=== PATIENT | male | born 1980 | race Caucasian/White ===

== ENCOUNTER 2018-10-24 14:00 | Emergency (ER) | payer MEDICAID ==
[~2018-10-24] VITALS: Wt 83.6 kg
[2018-10-24 14:43] VITALS: BP 123/80; PULSE 84; RESP 20
[2018-10-24] MEDS ORDERED: LIDOCAINE 1% (MDV) 20 ML INJ SC ONE (15:00)
[2018-10-24] MEDS ORDERED: BACITRACIN 0.9 GM OINT TOP ONE (15:00)
[2018-10-24] MEDS ORDERED: HYDR-4011 PO (15:15)
[2018-10-24] MEDS ORDERED: CEPH-443 PO (15:15)
--- NOTE | 2018-10-24 15:39 | ERD ---
ER Documentation Chief Complaint Chief Complaint INGROWN TOENAIL HPI 38-year-old male presents with complaint of ingrown toenail to the first left toe for the past 3 days. States that it is been painful. States it is also been inflamed. Denies any treatments. Denies any fevers, chills, numbness. ROS All systems reviewed and are negative except as per history of present illness. Medications Home Meds Active Scripts Cephalexin* (Keflex*) 500 Mg Capsule, 500 MG PO QID for 7 Days, CAP Prov:BART GOODMAN 10/24/18 Hydrocodone/Acetaminophen ([place] 5-325 Tablet) 1 Each Tablet, 1 TAB PO Q6H PRN for PAIN, #10 TAB Prov:BART GOODMAN 10/24/18 Allergies Allergies: Coded Allergies: No Known Allergy (Unverified , 10/15/13) PMhx/Soc Hx Alcohol Use: No Hx Substance Use: No Hx Tobacco Use: No FmHx Family History: No diabetes, No coronary disease, No other Physical Exam Vitals Vital Signs Date Temp Pulse Resp B/P (MAP) Pulse Ox O2 O2 Flow FiO2 Time Delivery Rate 10/24/18 98.4 84 20 123/80 98 14:43 (94) Physical Exam Const: No acute distress Head: Atraumatic Eyes: Normal Conjunctiva ENT: Normal External Ears, Nose and Mouth. Neck: Full range of motion. No meningismus. Resp: Clear to auscultation bilaterally Cardio: Regular rate and rhythm, no murmurs Abd: Soft, non tender, non distended. Normal bowel sounds Skin: No petechiae or rashes Back: No midline or flank tenderness Ext: Ingrown toenail noted to the first left toe with associated erythema and mild edema. There is no fluctuance noted. No lymphatic streaking noted. No drainage noted. Neur: Awake and alert Psych: Normal Mood and Affect Results 24 hrs Current Medications Medications Dose Sig/Teodoro Start Time Status Last (Trade) Ordered Route PRN Stop Time Admin Dose Reason Admin Lidocaine 20 ml ONCE ONCE 10/24/18 DC (Xylocaine SC 15:00 10/24/18 1% (Mdv) 20 15:02 ml) Bacitracin 1 applic ONCE ONCE 10/24/18 DC (Bacitracin TOP 15:00 10/24/18 Oint (Ud)) 15:02 Procedures/MDM MDM: Removal by me: Anesthesia: 1% lidocaine Digital Block Location: First left toe Technique: from nail bed, vertical split, twisting towards remaining nail. Packing: Non-adherent dressing applied Complications: None Recommend bid dressing changes and warm water soaks. Tendon was removed using the above technique. Patient tolerated procedure well and procedure was performed successfully without any complications. Given the edema and erythema surrounding the tunnel patient was treated with Keflex. Patient was given Ortho she was well. Does place in a clean dressing and bacitracin was applied. I will suspicion for acute space infection, osteomyelitis, or any other emergent condition. At this time, patient is stable for discharge and outpatient management. I have instructed the patient to follow-up with his/her primary care physician in 1-2 days. I have discussed with the patient the possibility of needing to see a specialist for further workup and imaging studies if symptoms persist. I have instructed the patient to promptly return to the ER for any new or worsening symptoms including but not limited to increased pain, fever, nausea, vomiting, weakness or LOC. The patient and/or family expressed understanding of and agreement with this plan. All questions were answered. Home care instructions were provided. Communication with patient both during the exam and instructions for discharge were performed with using a bank operations officer . Patient gave verbal confirmation to the practitioner, through the bank operations officer, that they understood everythign that was being said to them. DISCLAIMER: Inadvertent spelling and grammatical errors are likely due to EHR/dictation software use and do not reflect on the overall quality of patient care. Also, please note that the electronic time recorded on this note does not necessarily reflect the actual time of the patient encounter. Departure Diagnosis: Primary Impression: Ingrown toenail Condition: Stable Patient Instructions: Understanding Ingrown Toenails, Ingrown Toenail, Excised Referrals: COMM[facility] YOU HAVE RECEIVED A MEDICAL SCREENING EXAM AND THE RESULTS INDICATE THAT YOU DO NOT HAVE A CONDITION THAT REQUIRES URGENT TREATMENT IN THE EMERGENCY DEPARTMENT. FURTHER EVALUATION AND TREATMENT OF YOUR CONDITION CAN WAIT UNTIL YOU ARE SEEN IN YOUR DOCTORS OFFICE WITHIN THE NEXT 1-2 DAYS. IT IS YOUR RESPONSIBILITY TO MAKE AN APPOINTMENT FOR FOLOW-UP CARE. IF YOU HAVE A PRIMARY DOCTOR --you should call your primary doctor and schedule an appointment IF YOU DO NOT HAVE A PRIMARY DOCTOR YOU CAN CALL OUR PHYSICIAN REFERRAL HOTLINE AT IF YOU CAN NOT AFFORD TO SEE A PHYSICIAN YOU CAN CHOSE FROM THE FOLLOWING [facility] [address] [facility] [address] [facility]. [facility] [phone] [address] [facility] [address] [facility]. [facility] [address] [facility]. [facility] [address] Additional Instructions: FOLLOW UP WITH YOUR PRIMARY CARE PHYSICIAN TOMORROW.Return to this facility if you are not improving as expected. BART GOODMAN Oct 24, 2018 15:38
== END 2018-10-24 15:46 | disposition home or self-care (01) ==
LOC: FTE 14:00
DX: L60.0 Ingrowing nail (principal)
CPT/HCPCS: 11765; Z7502; Z7610